=== PATIENT | female | born 1960 | race Hispanic/Latino ===

== ENCOUNTER 2018-12-14 21:15 | Emergency (ER) | payer OTHER ==
[~2018-12-14] VITALS: Ht 165.1 cm; Wt 107.0 kg
[2018-12-14] MEDS ORDERED: KETOROLAC TROMETHAMINE 60 MG/2 ML VIAL IM ONE (22:15)
--- NOTE | 2018-12-14 22:51 | Diagnostic Imaging Report ---
ANKLE 3 VIEW RT - HOPD HISTORY: Twisted ankle COMPARISON: None available. FINDINGS: Bones: Avulsion fracture of the lateral malleolus below the level of the syndesmosis. Small plantar calcaneal enthesophyte. Osseous alignment is within normal limits. Joints: The joint spaces are well-maintained. Soft tissues: The soft tissues appear unremarkable. IMPRESSION: Avulsion fracture of the lateral malleolus Signed by: DR. Ted Beard MD on 12/14/2018 10:48 PM
== END 2018-12-14 23:45 | disposition home or self-care (01) ==
LOC: FSED 21:15
DX: S82.65XA Nondisplaced fracture of lateral malleolus of left fibula, initial encounter for closed fracture (principal); X50.1XXA Overexertion from prolonged static or awkward postures, initial encounter; Y92.008 Other place in unspecified non-institutional (private) residence as the place of occurrence of the external cause
CPT/HCPCS: 99283

== ENCOUNTER 2019-08-19 19:45 | Emergency (ER) | payer OTHER ==
[~2019-08-19] VITALS: Ht 170.2 cm; Wt 99.8 kg
--- OUTSIDE RECORDS SUMMARY | 2019-08-19 19:47 | XMS REPORT ---
[facility] Address Unknown Phone Unavailable Care Team Providers Care [facility] [employer] Name Role Phone Rigo FUNG Unavailable Unavailable Problems This patient has no known problems. Allergies, Adverse Reactions, Alerts This patient has no known allergies or adverse reactions. Medications This patient has no known medications. Results Test Description Test Time Test Comments Text Results Atomic Results Result Comments ANKLE 3 VIEW RT - HOPD 2018-12-14 22:39:00 [place] [address] Patient Name: MARION SMITH MR #: [id number] : 1960 Age/Sex: 58/F Req #: [id number] [facility] Physician: Ordered by: BANDAR FUNG MD Report #: [id number] Location: [facility] Room/Bed: Procedure: [id number] HOPD/ANKLE 3 VIEW RT - HOPD Exam Date: 12/14/18 Exam Time: 2220 REPORT STATUS: Signed ANKLE 3 VIEW RT - HOPD HISTORY: Twisted ankle COMPARISON: None available. FINDINGS: Bones: Avulsion fracture of the lateral malleolus below the level of the syndesmosis. Small plantar calcaneal enthesophyte. Osseous alignment is within normal limits. Joints: The joint spaces are well-maintained. Soft tissues: The soft tissues appear unremarkable. IMPRESSION: Avulsion fracture of the lateral malleolus Signed by: DR. Ted Bates MD on 12/14/2018 10:48 PM Dictated By: TED BATES MD 47 Transcribed By: BELKIS on 12/14/182247 COPY TO: BANDAR FUNG MD
[2019-08-19] MEDS ORDERED: ONDANSETRON HCL 4 MG ORAL DISINTEGRATING TAB PO ONE (20:00)
[2019-08-19] MEDS ORDERED: HYDROCODONE/APAP 5MG-325MG TAB PO ONE (20:00)
[2019-08-19] MEDS ORDERED: KETOROLAC TROMETHAMINE 60 MG/2 ML VIAL IM ONE (20:00)
[2019-08-19] MEDS ORDERED: KETOROLAC TROMETHAMINE 60 MG/2 ML VIAL ONE (20:15)
[2019-08-19] MEDS ORDERED: ONDANSETRON HCL 4 MG ORAL DISINTEGRATING TAB ONE (20:15)
[2019-08-19] MEDS ORDERED: HYDROCODONE/APAP 5MG-325MG TAB ONE (20:16)
== END 2019-08-19 20:30 | disposition home or self-care (01) ==
LOC: FSED 19:45
DX: M54.41 Lumbago with sciatica, right side (principal); I10 Essential (primary) hypertension; E11.9 Type 2 diabetes mellitus without complications
CPT/HCPCS: 96372; 99282; J1885; Q0162